=== PATIENT | female | born 1995 | race Caucasian/White ===

== ENCOUNTER 2021-08-22 02:56 | Day surgery (SDC) | payer OTHER, SELFPAY ==
[2021-08-05 14:51] VITALS: BMI 36.8
--- NOTE | 2021-08-20 11:23 | WPDGICN ---
Assessment and Plan Assessment and plan (1) Melena: Code(s): K92.1 - Melena Status: Acute Assessment and Plan: Colonoscopy with possible biopsy or polypectomy or cautery or injection of substances. GI Consult Note Consult date/time: 08/20/21 11:23 HPI: Corrie Jackson is a 25 year old female was being investigated for blood in the stools. She has had chronic gastrointestinal problems and has seen a gastrointestinal specialist in the past. US of abdomen was normal. Negative Celiac test. Negative gastric emptying test. Has tried omeprazole. Has had bloody stools off and on since September. Hasn't had colonoscopy in the recent past. Review of Systems Review of Systems: All systems reviewed & are unremarkable except as noted in HPI and below PMFSH Past Medical History Medical History ADHD Anxiety BMI 36.0-36.9,adult BMI over 35 COVID-19 Depression Eczema Migraine PTSD (post-traumatic stress disorder) Surgical History Surgical History History of colonoscopy History of tonsillectomy and adenoidectomy Family History Family History Father Hypertension Mother Anemia Depression Sibling No problems noted. Other Bipolar 1 disorder Breast cancer Iron deficiency Social History Social History Tobacco type: cigarettes Second hand tobacco smoke exposure: Yes Alcohol intake: current Alcohol use details: occassional Substance use: current Substance use type: marijuana Last use: t-1 Living arrangements: with friend(s) Additional occupation/education comments: [employer] Gender identity (if verbalized by the patient): Female Spiritual care concerns: No Meds Home Medications and Allergies Home Medications Medication Instructions Recorded Confirmed Type sumatriptan succinate See Rx Instructions PO .COMPLEX PRN 08/05/21 08/15/21 History bupropion HCl 100 mg tablet,12 hr 100 mg PO BID #60 tablet 08/15/21 08/15/21 Rx sustained-release duloxetine 30 mg capsule,delayed 30 mg PO DAILY #30 cap 08/15/21 08/15/21 Rx release Allergies Allergy/AdvReac Type Severity Reaction Status Date / Time No Known Allergies Allergy Verified 08/22/21 09:35 Exam Const: General: alert Orientation/consciousness: patient oriented x3 Resp: Auscultation: clear to auscultation bilaterally Cardio: Rhythm: regular rhythm GI: GI Palp: Yes Soft to palpation and No Tenderness to palpation present (GI) Neuro: General: patient oriented x3
[2021-08-22 09:38] VITALS: BP 114/65; PULSE 110; RESP 16; TEMP 36.1; O2SAT 96
[2021-08-22] MEDS: LACTATED RINGERS 1,000 ML 150 ML IV CONT (09:40)
--- NOTE | 2021-08-22 09:51 | WPDANESEPPF ---
Anes - Initial Pre Proc Eval Procedure: Operation Date: 08/22/21 10:45 Proposed Procedures p Colonoscopy - Luciano Franklin MD Date/Time: 08/22/21 09:51 Surgeon: Luciano Franklin MD Pre Op Diagnosis: IBS, melena Patient Data Age: 25 Gender: F Height: 1.55 m Weight: 86.4 kg Last Vital Signs Temp 96.9 F L 08/22/21 09:38 Pulse 110 H 08/22/21 09:38 Resp 16 08/22/21 09:38 BP 114/65 08/22/21 09:38 Pulse Ox 96 08/22/21 09:38 Allergies Allergy/AdvReac Type Severity Reaction Status Date / Time No Known Allergies Allergy Verified 08/22/21 09:35 Home Medications Medication Instructions Recorded Confirmed Type sumatriptan succinate See Rx Instructions PO .COMPLEX PRN 08/05/21 08/22/21 History bupropion HCl 100 mg tablet,12 hr 100 mg PO BID #60 tablet 08/15/21 08/22/21 Rx sustained-release duloxetine 30 mg capsule,delayed 30 mg PO DAILY #30 cap 08/15/21 08/22/21 Rx release Patient hx anesthesia problems: none Family hx anesthesia problems: none Results Review: All pre-operative results and documents have been reviewed as part of the pre-operative evaluation. [facility] Past Medical History Medical History ADHD Anxiety BMI 36.0-36.9,adult BMI over 35 COVID-19 Depression Eczema Migraine PTSD (post-traumatic stress disorder) Surgical History Surgical History History of colonoscopy History of tonsillectomy and adenoidectomy Family History Family History Father Hypertension Mother Anemia Depression Sibling No problems noted. Other Bipolar 1 disorder Breast cancer Iron deficiency Social History Social History Tobacco type: cigarettes Second hand tobacco smoke exposure: Yes Alcohol intake: current Alcohol use details: occassional Substance use: current Substance use type: marijuana Last use: t-1 Living arrangements: with friend(s) Additional occupation/education comments: [employer] Gender identity (if verbalized by the patient): Female Spiritual care concerns: No Anes - Eval Final PreProcedure Day of Procedure 08/22/21 09:51 Patient weight: obese Heart: regular rate and rhythm Lungs: clear to auscultation Airway: Mallampati scale class II Neurological: alert and oriented ASA classification: II Emergent: no Anesthetic plan: proceed Anesthesia type and monitoring: general GIVS and standard monitoring Results Review: All pre-operative results and documents have been reviewed as part of the pre-operative evaluation. Informed Consent: The patient's anesthetic plan and its attendant risks and benefits were discussed with the patient/family/POA. Questions were solicited and answers provided to the satisfaction of the patient/family/POA.
[2021-08-22 10:40] VITALS: BP 100/41; PULSE 64; RESP 17; O2SAT 100
[2021-08-22 10:50] VITALS: BP 100/73; PULSE 96; RESP 36; O2SAT 98
[2021-08-22 11:00] VITALS: BP 108/70; PULSE 88; RESP 19; O2SAT 99
== END 2021-08-22 11:04 | disposition home or self-care (01) ==
PROVIDERS: PCP Family Medicine; Visit Provider Internal Medicine Gastroenterology
PROC: 0DJD8ZZ Inspection of Lower Intestinal Tract, Via Natural or Artificial Opening Endoscopic (ICD-10-PCS; CPT 45378; principal; 2021-08-22 10:45)
DX: K92.1 Melena (principal); K64.8 Other hemorrhoids; F90.9 Attention-deficit hyperactivity disorder, unspecified type; F43.10 Post-traumatic stress disorder, unspecified; F41.8 Other specified anxiety disorders; F12.90 Cannabis use, unspecified, uncomplicated; E66.9 Obesity, unspecified; Z68.36 Body mass index [BMI] 36.0-36.9, adult
CPT/HCPCS: 45378; J2704; J7120

== ENCOUNTER 2023-08-04 12:33 | Emergency (ER) | payer OTHER, SELFPAY ==
[2023-08-04 12:51] VITALS: BP 117/94; PULSE 89; RESP 16; TEMP 36.7; O2SAT 99
--- NOTE | 2023-08-04 13:49 | ED.GENADULT ---
HPI - General Adult General Chief complaint: Dental/Oral Stated complaint: tongue and mouth issue Time Seen by Provider: 08/04/23 13:49 Source: patient Mode of arrival: ambulatory Limitations: no limitations History of Present Illness HPI narrative: 27-year-old patient presents to clinic today with complaints of sore throat and itchy tongue and white ?stuff? on her tongue that she can not brush off. Patient recently had wisdom teeth extraction 2 weeks ago and was prescribed Augmentin and steroids. Patient has completed the course of antibiotics and started feeling symptoms on . Patient reports last time she was on antibiotics she got a rash and vaginal yeast infection. Patient denies vaginal discharge and itching. Related Data Home Medications Medication Instructions Recorded Confirmed sumatriptan succinate 100 mg tablet See Rx Instructions PO .COMPLEX 08/05/21 08/04/23 PRN migraines dextroamphetamine-amphetamine 10 08/04/23 mg tablet Allergies Allergy/AdvReac Type Severity Reaction Status Date / Time No Known Allergies Allergy Verified 08/04/23 12:43 Review of Systems Review of Systems: CONSTITUTIONAL: Denies fever, chills, or sweats. EYES: Denies visual changes, redness, or discharge. ENT: Denies rhinorrhea, congestion, positive itchy and sore throat and otalgia intermittently when swallowing. Positive white film on tongue and itchy tongue. CARDIOVASCULAR: Denies chest pain, palpitations, or edema. RESPIRATORY: Denies cough or dyspnea. GASTROINTESTINAL: Denies abdominal pain, nausea, vomiting, or diarrhea. GENITOURINARY: Denies dysuria or hematuria. SKIN: Denies rash or itching. MUSCULOSKELETAL: Denies back pain, joint pain, or myalgia. NEUROLOGIC: Denies headache, numbness, or weakness. PSYCHIATRIC: Denies anxiety or depression. [facility] Past Medical History Medical History ADHD Anal skin tag Anxiety Bipolar disorder, current episode hypomanic BMI 34.0-34.9,adult BMI 36.0-36.9,adult BMI over 35 COVID-19 Depression Eczema Migraine PTSD (post-traumatic stress disorder) Surgical History Surgical History History of colonoscopy History of lingual frenulectomy History of tonsillectomy and adenoidectomy Family History Family History Father Hypertension Mother Anemia Depression Sibling Asthma ADHD Other Bipolar 1 disorder Breast cancer Iron deficiency Social History Social History Smoking status: Former smoker Tobacco type: cigarettes Second hand tobacco smoke exposure: Yes Alcohol intake: current Alcohol use details: occassional Substance use: current Substance use type: marijuana Last use: t-1 Lack of Transportation: No Lack of Food: Never True Current Housing: I Have Housing Concerned About Future Housing: No Difficulty Paying Gas/Electric Bills: No Difficulty Paying for Meds: No Currently Unemployed: No Education: Bachelor's Degree Living arrangements: with roommate(s) Occupation/Education: occupation 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 There is no relevant family history pertinent to the presenting complaint. Exam Narrative: GENERAL: Well-appearing, well-nourished, and in no acute distress. HEAD: Normocephalic, atraumatic. EYES: PERRLA and EOMI. ENT: Nares clear, no rhinorrhea or epistaxis. Mucous membranes moist. Mucosa is pink, moist and intact. White film of tongue present. Posterior oropharynx is erythematous, tonsils are 2+ without exudate. Bilateral ears are free of disc
== END 2023-08-04 14:05 | disposition home or self-care (01) ==
PROVIDERS: Emergency Provider Nurse Practitioner Family; PCP Family Medicine
DX: B37.0 Candidal stomatitis (principal); Z87.891 Personal history of nicotine dependence; F12.90 Cannabis use, unspecified, uncomplicated; Z86.16 Personal history of COVID-19
CPT/HCPCS: 99213; G0463